=== PATIENT | male | born 1990 | race Caucasian/White ===

== ENCOUNTER 2024-06-12 17:40 | Emergency (ER) | payer MEDICAID, OTHER ==
[2024-06-12 17:59] LABS: BASOPHILS ABSOLUTE AUTO 0.03 K/uL (0.00-0.10); BASOPHILS PERCENT AUTO 0.3 % (0.1-1.3); EOSINOPHILS ABSOLUTE AUTO 0.06 K/uL (0.00-0.40); EOSINOPHILS PERCENT AUTO 0.6 % (0.0-5.4); HEMATOCRIT 48.7 % (38.4-49.7); HEMOGLOBIN 17.5 g/dL (12.9-16.9); IMMATURE GRAN ABSOLUTE AUTO 0.03 K/uL (0.00-0.23); IMMATURE GRAN PERCENT AUTO 0.3 % (0.0-0.7); LYMPHOCYTES ABSOLUTE AUTO 1.04 K/uL (0.8-3.3); LYMPHOCYTES PERCENT AUTO 11.2 % (11.4-47.7); MEAN CORPUSCULAR HEMOGLOBIN 31.4 pg (31.6-35.5); MEAN CORPUSCULAR HGB CONC 35.9 g/dL (31.6-35.5); MEAN CORPUSCULAR VOLUME 87.3 fL (81.4-99.0); MONOCYTES ABSOLUTE AUTO 0.58 K/uL (0.20-0.90); MONOCYTES PERCENT AUTO 6.2 % (3.3-12.6); NEUTROPHILS ABSOLUTE AUTO 7.57 K/uL (1.0-7.6); NEUTROPHILS PERCENT AUTO 81.4 % (40.0-78.1); PLATELET COUNT,PLT 260 K/uL (130-375); RED BLOOD CELL COUNT 5.58 M/uL (4.14-5.76); WHITE BLOOD CELL COUNT,WBC 9.3 K/uL (3.2-11.0)
[2024-06-12 18:21] LABS: BLOOD UREA NITROGEN,BUN 11 mg/dL (7-18); CALCIUM 9.9 mg/dL (8.5-10.1); CARBON DIOXIDE,CO2 26 mmol/L (21-32); CHLORIDE,CL 104 mmol/L (100-108); ESTIMATED GFR 103 mL/min (>60); GLUCOSE RANDOM 92 mg/dL (74-106); POTASSIUM,K 4.2 mmol/L (3.6-5.2); SODIUM,NA 139 mmol/L (140-148)
[2024-06-12 18:22] LABS: ANION GAP 13.2 mmol/L (5.0-14.0); TROPONIN I HIGH SENSITIVITY < 4.0 pg/mL (<=60.3)
[2024-06-12] MEDS: Cyclobenzaprine 10 MG Tab PO ONE (18:33)
== END 2024-06-12 18:55 | disposition home or self-care (01) ==
LOC: JP.ED 17:40
DX: R07.89 Other chest pain (principal); E83.42 Hypomagnesemia
CPT/HCPCS: 36415; 71046; 80048; 80307; 83735; 84484; 85025; 93005; 93010; 99283; 99285; A9270

== ENCOUNTER 2024-10-02 10:14 | Emergency (ER) | payer MEDICAID, OTHER | END 2024-10-02 11:12 | disposition home or self-care (01) | LOC: JP.ED 10:14 | DX: M62.830 Muscle spasm of back (principal); F17.200 Nicotine dependence, unspecified, uncomplicated; Z86.16 Personal history of COVID-19 | CPT/HCPCS: 99283 ==